=== PATIENT | male | born 1985 | race Caucasian/White ===

== ENCOUNTER 2023-05-29 20:44 | Emergency (ER) | payer MEDICAID ==
[~2023-05-29] VITALS: Ht 190.5 cm; Wt 86.2 kg
[2023-05-29] MEDS ORDERED: KETOROLAC TROMETHAMINE INJ 30 MG/ML VIAL ONE (22:20)
[2023-05-29] MEDS ORDERED: dexaMETHasone SOD PHOSPHATE 10 MG/ML VIAL ONE (22:20)
[2023-05-29 22:29] VITALS: BP 131/68; TEMP 98.1; O2SAT 98
[2023-05-29] MEDS ORDERED: dexaMETHasone SOD PHOSPHATE 10 MG/ML VIAL IM ONE (22:30)
[2023-05-29] MEDS ORDERED: KETOROLAC TROMETHAMINE INJ 60 MG/2 ML VIAL IM ONE (22:30)
== END 2023-05-29 22:29 | disposition home or self-care (01) ==
LOC: ER 20:48
DX: J02.9 Acute pharyngitis, unspecified (principal)
CPT/HCPCS: 99284; 96372 ×2; J1100; J1885